=== PATIENT | male | born 1990 | race Two or more races ===

== ENCOUNTER 2025-01-19 03:49 | Inpatient (IN) | payer MEDICAID ==
[2025-01-19] MEDS ORDERED: OLANZapine 5 MG RAPDIS TABLET PO PRN (22:15)
[2025-01-19] MEDS ORDERED: MAGNESIUM HYDROXIDE SUSPENSION 30 ML UDCUP PO PRN (22:15)
[2025-01-19] MEDS ORDERED: GuaiFENesin/D-METHORPHAN [SUGAR-FREE] 200-20MG/10 ML SYRUP UDCUP PO PRN (22:15)
[2025-01-19] MEDS ORDERED: TUBERCULIN, PURIFIED PROTEIN DERIVATIVE 5 TU/0.1 ML SYRINGE ID ONE (22:15)
[2025-01-19] MEDS ORDERED: ZOLPIDEM TARTRATE 10 MG TABLET PO PRN (22:15)
[2025-01-19] MEDS ORDERED: LOPERAMIDE HCL 2 MG CAPSULE PO PRN (22:15)
[2025-01-19] MEDS ORDERED: ACETAMINOPHEN 325 MG TABLET PO PRN (22:15)
[2025-01-19] MEDS ORDERED: MAG HYDROX/ALUMINUM HYD/SIMETH ES 30 ML SUSPENSION UDCUP PO PRN (22:15)
[2025-01-19] MEDS ORDERED: PROMETHAZINE HCL 25 MG TABLET PO PRN (22:15)
[2025-01-20 08:12] VITALS: BP 98/85; PULSE 95; RESP 18; TEMP 97.4; O2SAT 98
[2025-01-20] MEDS: MULTIVITAMINS WITH MINERALS, THERAPEUTIC TABLET PO SCH (08:44)
[2025-01-20] MEDS: THIAMINE 100 MG TABLET PO SCH (08:45)
[2025-01-20] MEDS: NALTREXONE HCL 50 MG TABLET PO SCH (08:45)
[2025-01-20] MEDS: FOLIC ACID 1 MG TABLET PO SCH (08:45)
[2025-01-20] MEDS: DIVALPROEX SODIUM 500 MG ER TABLET PO SCH (08:45)
[2025-01-20 09:55] VITALS: BP 98/68; PULSE 98; RESP 18; TEMP 97.4; O2SAT 98
[2025-01-20] MEDS: MELATONIN 5 MG TABLET PO SCH (20:48)
[2025-01-20] MEDS: OLANZapine 5 MG RAPDIS TABLET PO SCH (20:49)
[2025-01-20 21:15] VITALS: BP 122/84; PULSE 79; RESP 18; TEMP 96.8; O2SAT 98
[2025-01-21 08:34] LABS: PLATELET COUNT (AUTO) 230 K/uL (150-450); RED BLOOD CELL COUNT(AUTO) 5.06 MIL/uL (4.50-5.90); RED CELL DISTRIBUTION WIDTH 13.8 % (11.5-14.5); WHITE BLOOD COUNT (AUTO) 7.1 K/uL (4.5-11.0)
[2025-01-21 08:50] VITALS: BP 108/64; PULSE 61; RESP 17; TEMP 97.7; O2SAT 98
[2025-01-21 08:59] LABS: ASPARTATE AMINOTRANSFERASE 20 U/L (15-37); CALCIUM, TOTAL 8.7 mg/dL (8.8-10.5); CHOL/HDL RATIO 4.4 (4.2-7.3); CREATININE 0.82 mg/dL (0.60-1.30); GLOMERULAR FILTR. RATE CALC > 60 mL/min (>60); GLUCOSE,RANDOM 80 mg/dL (70-110); LDL CHOL (CALC.) 118 mg/dL (0-130); SODIUM SERUM 139 mmol/L (136-145); TOTAL PROTEIN, SERUM 7.8 g/dL (6.4-8.2); UREA NITROGEN, BLOOD 12 mg/dL (7-18)
[2025-01-21] MEDS ORDERED: TUBERCULIN, PURIFIED PROTEIN DERIVATIVE 5 TU/0.1 ML SYRINGE ID ONE (09:00)
[2025-01-21] MEDS ORDERED: FLUO-418 PO (12:27)
[2025-01-21] MEDS ORDERED: NALT50TA33 PO (12:27)
[2025-01-21] MEDS ORDERED: MELA5TAB40 PO (12:27)
[2025-01-21] MEDS ORDERED: DIVA-153 PO (12:27)
[2025-01-21] MEDS ORDERED: OLAN5TAB94 PO (12:27)
[2025-01-21] MEDS: PALIPERIDONE PALMITATE 234 MG/1.5 ML SYRINGE IM ONE (21:00)
[2025-01-21] MEDS: OLANZapine 10 MG RAPDIS TABLET PO SCH (21:09)
[2025-01-21 21:53] VITALS: BP 137/65; PULSE 66; RESP 17; TEMP 97.2; O2SAT 97
[2025-01-22 08:37] VITALS: BP 115/64; PULSE 62; RESP 16; TEMP 97.3; O2SAT 100
[2025-01-25] MEDS ORDERED: PALIPERIDONE PALMITATE 156 MG/ML SYRINGE IM ONE (09:00)
[2025-01-27] MEDS ORDERED: FLUO-418 PO (17:29)
[2025-01-27] MEDS ORDERED: DIVA-153 PO (17:29)
[2025-01-27] MEDS ORDERED: MELA5TAB40 PO (17:29)
[2025-01-27] MEDS ORDERED: OLAN10TA26 PO (17:29)
[2025-01-27] MEDS ORDERED: NALT50TA33 PO (17:29)
== END 2025-01-22 13:00 | disposition home or self-care (01) | DRG 750 ==
LOC: B3A 01-20 06:02
PROVIDERS: ADMIT Psychiatry & Neurology Psychiatry; ATTEND Psychiatry & Neurology Psychiatry
PROC: GZHZZZZ Group Psychotherapy (ICD-10-PCS; principal; 2025-01-20)
PROC: GZ58ZZZ Individual Psychotherapy, Cognitive-Behavioral (ICD-10-PCS; 2025-01-20)
PROC: GZ56ZZZ Individual Psychotherapy, Supportive (ICD-10-PCS; 2025-01-21)
DX: F25.9 Schizoaffective disorder, unspecified (principal); F10.20 Alcohol dependence, uncomplicated; F32.A Depression, unspecified; Y90.9 Presence of alcohol in blood, level not specified; F17.210 Nicotine dependence, cigarettes, uncomplicated; F15.20 Other stimulant dependence, uncomplicated; F12.20 Cannabis dependence, uncomplicated; J44.9 Chronic obstructive pulmonary disease, unspecified; Z63.5 Disruption of family by separation and divorce; Z59.9 Problem related to housing and economic circumstances, unspecified; Z55.9 Problems related to education and literacy, unspecified; Z91.52 Personal history of nonsuicidal self-harm; Z65.3 Problems related to other legal circumstances; Z59.00 Homelessness unspecified
CPT/HCPCS: 80053; 80061; 83036; 84439; 84443; 85025; 86592